=== PATIENT | male | born 1990 | race African-American/Black ===

== ENCOUNTER 2024-01-25 13:26 | Emergency (ER) | payer OTHER, MEDICAID ==
[~2024-01-25] VITALS: Ht 188 cm; Wt 105.0 kg
[2024-01-25 13:32] VITALS: O2SAT 98
[2024-01-25] MEDS: ONDANSETRON HCL 4MG/2ML INJ IV ONE (14:11)
[2024-01-25] MEDS: MORPHINE SULFATE 4 MG/ML INJ (FOR IV/IM USE) IV ONE (14:12)
[2024-01-25] MEDS ORDERED: CELE100C MT (15:24)
[2024-01-25] MEDS ORDERED: OXYC-100 MT (15:24)
[2024-01-25] MEDS: OXYCODONE HCL/ACETAMINOPHEN 5/325MG TABLET PO ONE (15:51)
[2024-01-25 15:58] VITALS: BP 125/41; PULSE 68; RESP 14; TEMP 36.78072; O2SAT 98
== END 2024-01-25 16:17 | disposition home or self-care (01) ==
LOC: ER 13:26
DX: S76.112A Strain of left quadriceps muscle, fascia and tendon, initial encounter (principal); F19.90 Other psychoactive substance use, unspecified, uncomplicated; X58.XXXA Exposure to other specified factors, initial encounter; Y93.89 Activity, other specified; Y92.89 Other specified places as the place of occurrence of the external cause; Y99.8 Other external cause status
CPT/HCPCS: 73560; 96374; 96375; 99284; J2405; J2270; Z7610; L1830